=== PATIENT | male | born 1985 | race Two or more races ===

== ENCOUNTER 2023-12-06 22:01 | Emergency (ER) | payer OTHER ==
[~2023-12-06] VITALS: Ht 182.9 cm; Wt 125.0 kg
[2023-12-06 23:14] LABS: Basophils # (auto) 0.2 10 ^3/uL (0-0.2); Basophils % (auto) 0.8 % (0.0-2.0); Eosinophils # (auto) 0.2 10 ^3/uL (0-0.8); Eosinophils % (auto) 0.8 % (0.0-7.0); Hematocrit 45.7 % (41.0-53.0); Hemoglobin 16.3 g/dL (13.5-17.5); Lymphocytes # (auto) 2.8 10 ^3/uL (0.4-5.4); Lymphocytes % (auto) 13.7 % (10.0-50.0); Mean Corpuscular Hemoglobin 33.5 pg (28.0-32.0); Mean Corpuscular Hgb Conc. 35.7 g/dL (32.0-36.0); Mean Corpuscular Volume 93.8 fL (80.0-100.0); Monocytes # (auto) 2.1 10 ^3/uL (0-1.3); Monocytes % (auto) 10.2 % (0.0-12.0); Neutrophils # (auto) 15.1 10 ^3/uL (1.6-8.6); Neutrophils % (auto) 74.5 % (37.0-80.0); Platelet Count (auto) 210 10^3/uL (140-450); Red Blood Cells 4.87 10^6/uL (4.5-5.90); Red Cell Distribution Width 13.1 % (11.8-14.3); White Blood Cell 20.3 10^3/uL (4.4-10.8)
[2023-12-06 23:23] LABS: Urine Bacteria None Seen /hpf (None Seen)
[2023-12-06 23:32] LABS: Alanine Aminotransferase 39 U/L (7-40); Albumin 4.8 g/dL (3.2-4.8); Alkaline Phosphatase 92 U/L (46-116); Anion Gap 7 (5-15); Aspartate Aminotransferase 11 U/L (13-40); BUN/Creatinine Ratio 7.4 (10.0-20.0); Blood Urea Nitrogen 8 mg/dL (9-23); Calcium 9.6 mg/dL (8.7-10.4); Carbon Dioxide 26 mmol/L (20-30); Chloride 103 mmol/L (98-107); Glucose 118 mg/dL (74-106); Lipase 70 U/L (12-53); Potassium 3.8 mmol/L (3.5-5.1); Sodium 136 mmol/L (136-145)
[2023-12-06 23:33] LABS: Bilirubin, Total 0.8 mg/dL (0.2-1.0); Total Protein 7.8 g/dL (5.7-8.2)
[2023-12-06 23:34] LABS: Urine Blood 2+ /uL (Negative); Urine Clarity Turbid (Clear); Urine Color Yellow (Yellow); Urine Mucus FEW (None Seen); Urine Protein, UAD 1+ (Negative); Urine Specific Gravity 1.027 (1.001-1.035); Urine Urobilinogen 3 mg/dL (Negative); Urine WBC 336 /hpf (0 - 3)
[2023-12-07] MEDS: ACETAMINOPHEN 325 MG TAB PO ONE (00:08)
[2023-12-07 00:17] VITALS: BP 125/88; PULSE 122; RESP 20; O2SAT 96
[2023-12-07] MEDS ORDERED: LEVO500T91 PO (01:01)
[2023-12-07 01:07] VITALS: TEMP 99.2
== END 2023-12-07 01:08 | disposition home or self-care (01) ==
LOC: ER 22:01
DX: N30.01 Acute cystitis with hematuria (principal); F32.A Depression, unspecified
CPT/HCPCS: 36415; 74176; 80053; 81001; 83690; 85025